=== PATIENT | female | born 1950 | race Caucasian/White ===

== ENCOUNTER 2023-04-19 12:38 | Outpatient (CLI) | payer MEDICARE, BC, SELFPAY ==
--- NOTE | 2023-04-19 09:13 | W.ANESCHARGE ---
Anesthesia Charges Start Date/Time Anesthesia Start Date: 04/19/23 Anesthesia Start Time: 13:20 Stop Date/Time Anesthesia Stop Date: 04/19/23 Anesthesia Stop Time: 13:46 Summary Extremes of Age - Over 70 or under 1: MDA
--- NOTE | 2023-04-19 13:49 | W.ANESCHARGE ---
Anesthesia Charges Start Date/Time Anesthesia Start Date: 04/19/23 Anesthesia Start Time: 13:20 Stop Date/Time Anesthesia Stop Date: 04/19/23 Anesthesia Stop Time: 13:46
== END 2023-04-19 12:39 | disposition home or self-care (01) ==
LOC: OP CLINIC 12:41
PROVIDERS: PCP Family Medicine; Visit Provider Internal Medicine Gastroenterology
DX: Z12.11 Encounter for screening for malignant neoplasm of colon (principal); K63.5 Polyp of colon; K57.30 Diverticulosis of large intestine without perforation or abscess without bleeding
CPT/HCPCS: 45385; 811; 88305; 99100; J2704